=== PATIENT | female | born 1965 | race Caucasian/White ===

== ENCOUNTER → 2023-07-20 11:28 | Outpatient (REF) | payer OTHER, SELFPAY | LOC: HWRAD 11:28 | PROVIDERS: ATTENDING PHYSICIAN Family Medicine | DX: M79.2 Neuralgia and neuritis, unspecified (principal) | CPT/HCPCS: 72052 ==

== ENCOUNTER → 2023-09-02 10:09 | Outpatient (REF) | payer OTHER, SELFPAY | LOC: PAVMRI 10:09 | PROVIDERS: ATTENDING PHYSICIAN Family Medicine | DX: M54.12 Radiculopathy, cervical region (principal) | CPT/HCPCS: 72141 ==

== ENCOUNTER → 2024-05-30 09:12 | Outpatient (REF) | payer OTHER, SELFPAY | LOC: HWRAD 09:12 | PROVIDERS: ATTENDING PHYSICIAN Family Medicine | DX: S99.912A Unspecified injury of left ankle, initial encounter (principal) | CPT/HCPCS: 73610 ==